=== PATIENT | female | born 1980 | race Caucasian/White ===

== ENCOUNTER 2017-01-09 11:16 | Emergency (ER) | payer OTHER ==
[2017-01-09 11:34] VITALS: BP 122/75
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
== END 2017-01-09 11:39 | disposition home or self-care (01) ==
LOC: ED 11:16
DX: J01.40 Acute pansinusitis, unspecified (principal)
CPT/HCPCS: 99283

== ENCOUNTER 2017-02-01 20:48 | Emergency (ER) | payer OTHER ==
--- NOTE | 2017-02-01 21:02 | ED Physician Documentation ---
Nausea/Vomiting/Diarrhea - HISTORIAN Historian: patient - HPI Chief Complaint: Nausea,Vomiting,Diarrhea Onset: days ago (yesterday) Timing: sudden onset Severity: moderate Further Comments: yes (Started yesterday with fever, chills, nausea, vomiting, ( none today), diarrhea (4 times). NO blood noted. mouth feels dry, no orthostatic symptoms noted) - Associated Symptoms Vomiting: mild Diarrhea: mucous, watery Abdominal Pain: cramping - ROS CONST: none - PAST HX Past History: none Surgeries/Procedures: appendectomy Allergies/Adverse Reactions: Allergies Allergy/AdvReac Type Severity Reaction Status Date / Time cephalexin monohydrate Allergy Severe Generalized Verified 02/01/17 21:07 [From Keflex] Swelling hydrogen peroxide Allergy Severe Generalized Verified 02/01/17 21:07 [Hydrogen Peroxide] Swelling Penicillins Allergy Severe Generalized Verified 02/01/17 21:07 Swelling - SOCIAL HX Smoking History: greater than 1 pack/day Alcohol Use: none Drug Use: none - FAMILY HX Family History: none - VITAL SIGNS Vital Signs: Vital Signs Temp Pulse Resp BP Pulse Ox 98.0 F 88 16 101/67 97 02/01/17 20:49 02/01/17 20:49 02/01/17 20:49 02/01/17 20:49 02/01/17 20:49 - REVIEWED ASSESSMENTS Nursing Assessment Reviewed: Yes Vitals Reviewed: Yes ED Results Lab/Radiology - Lab Results Lab Results: Lab Results 02/01/17 02/01/17 21:23 21:23 WBC 8.70 K/ul K/ul (4.00-12.00) RBC 4.64 M/ul M/ul (3.90-5.20) Hgb 14.7 g/dL g/dL (12.0-16.0) Hct 41.9 % % (34.5-46.5) MCV 90.2 fl fl (80.0-100.0) MCH 31.7 pg pg (28.0-34.0) MCHC 35.2 g/dL g/dL (30.0-36.0) RDW 12.2 % % (11.3-14.3) Plt Count 325 K/mm3 K/mm3 (130-400) Neut % (Auto) 55.6 % % (39.0-79.0) Lymph % (Auto) 25.8 % % (16.0-50.0) [place] % (Auto) 6.0 % % (0.0-11.0) Eos % (Auto) 8.9 % H % (0.0-6.8) Baso % (Auto) 0.9 (0.0-1.5) Neut # (Auto) 4.8 # k/uL # k/uL (1.4-7.7) Lymph # (Auto) 2.2 # k/uL # k/uL (0.6-4.0) [place] # (Auto) 0.5 # k/uL # k/uL (0.0-0.9) Eos # (Auto) 0.8 # k/uL H # k/uL (0.0-0.6) Baso # (Auto) 0.1 # k/uL # k/uL (0.0-0.5) Reactive Lymphs % 2.8 % % (0.0-5.0) Reactive Lymphs # 0.2 # k/uL # k/uL (0.0-0.8) Sodium 139 mmol/L mmol/L (136-145) Potassium 3.2 mmol/L L mmol/L (3.5-5.0) Chloride 103 mmol/L mmol/L (98-110) Carbon Dioxide 29 mmol/L mmol/L (20-32) BUN < 5 mg/dL L mg/dL (10-26) Creatinine 0.7 mg/dL mg/dL (0.4-1.5) Estimated Creat Clear 137 Est GFR ( Amer) > 60 (60 - ) Est GFR (Non-Af Amer) > 60 (60 - ) Glucose 84 mg/dL mg/dL (70-99) Calcium 9.6 mg/dL mg/dL (8.5-10.5) Total Bilirubin 0.4 mg/dL mg/dL (0.2-1.2) AST 12 U/L U/L (0-41) ALT 9 U/L U/L (0-45) Alkaline Phosphatase 59 U/L U/L (46-116) Total Protein 6.9 g/dL g/dL (6.0-8.5) Albumin 4.4 g/dL g/dL (3.0-5.5) - Orders Orders: ED Orders Category Date Time Status CBC/PLATELET/DIFF Routine Lab 02/01/17 21:23 Completed CMP Routine Lab 02/01/17 21:23 Completed 0.9 % Sodium Chloride [Normal Saline] 1,000 ml Med 02/01/17 21:30 Ordered IV .Q1H Ondansetron HCl/Pf [Zofran 4 mg/2 ml] Med 02/01/17 21:08 Discontinued 4 mg IVP NOW ONE Nausea Physical Exam - EXAM General Appearance: alert, mild distress EENT: no signs of dehydration Neck: normal inspection, thyroid normal, supple Respiratory: no resp distress, chest non-tender, breath sounds normal. No: wheezes, rales, rhonchi CVS: reg rate & rhythm, heart sounds normal, equal pulses, no murmur Abdomen: non-tender, no organomegaly Back: No: vertebral point-tendernes, CVA tenderness Skin: warm/dry, normal color Extremities: non-tender Neuro/Psych: oriented X3, mood/affect nml Discharge Clincal Impression: Viral gastroenteritis Referrals: Chata Leal MD [Primary Care Provider] - 2 Days Additional Instructions: Clear liquids for the next 12-24 hours. Push fluids. Take Zofran if needed for nausea. If you cintinue to have problems to follow-up with your primary care provider. Condition: Stable Disposition: 01 HOME, SELF-CARE Decision to Admit: NO Date of Decison to Admit: 02/01/17 Decision Time: 22:13
[2017-02-01] MEDS ORDERED: 0.9 % SODIUM CHLORIDE 1,000 ML IV ONE (21:20)
[2017-02-01] MEDS: 0.9 % SODIUM CHLORIDE 1,000 ML IV SCH (21:20)
[2017-02-01] MEDS: ONDANSETRON HCL/PF 4 MG/ 2ML VIAL IVP ONE (21:22)
[2017-02-01 21:29] LABS: BASOPHILS % 0.9 (0.0-1.5); EOSINOPHILS % 8.9 % (0.0-6.8); MEAN CORPUSCULAR HEMOGLOBIN 31.7 pg (28.0-34.0); MEAN CORPUSCULAR VOLUME 90.2 fl (80.0-100.0); NEUTROPHILS # 4.8 # k/uL (1.4-7.7)
[2017-02-01 21:43] LABS: eGFR (African) > 60; eGFR (Non-African) > 60
[2017-02-01 22:32] VITALS: BP 115/62
== END 2017-02-01 22:25 | disposition home or self-care (01) ==
LOC: ED 20:48
DX: A08.4 Viral intestinal infection, unspecified (principal)
CPT/HCPCS: 80053; 85025; J2405; J7030; 96361; 96374; 99283; S1016

== ENCOUNTER 2017-08-19 16:22 | Emergency (ER) | payer OTHER ==
--- NOTE | 2017-08-19 16:47 | ED Physician Documentation ---
Female Urogenital Problems - HISTORIAN Historian: patient - HPI Chief Complaint: Female Urogenital Problems Additional Information: kidney pain and dysuria x 2 days, with sore throat and ear ache, feels bad. sick kids. Onset: days ago Severity: mild Further Comments: no - Associated Symptoms Urinary Symptoms: discomfort w/ urination, burning w/ urination - ROS CONST: none GI/: denies: nausea, vomiting CVS/RESP: none EYES/ENT: sore throat NEURO/PSYCH: none MS/SKIN/LYMPH: none - PAST HX Past History: none Other History: none Surgeries/Procedures: appendectomy Allergies/Adverse Reactions: Allergies Allergy/AdvReac Type Severity Reaction Status Date / Time cephalexin monohydrate Allergy Severe Generalized Verified 02/01/17 21:07 [From Keflex] Swelling hydrogen peroxide Allergy Severe Generalized Verified 02/01/17 21:07 [Hydrogen Peroxide] Swelling Penicillins Allergy Severe Generalized Verified 02/01/17 21:07 Swelling - SOCIAL HX Smoking History: cigarettes, greater than 1 pack/day Alcohol Use: none Drug Use: none - FAMILY HX Family History: none - VITAL SIGNS Vital Signs: Vital Signs Temp Pulse Resp BP Pulse Ox 115/62 02/01/17 22:25 ED Results Lab/Radiology - Lab Results Lab Results: UA (+) nitrites 3+ leukocytes RS (-) - Orders Orders: ED Orders Category Date Time Status Rapid Strep [GRP A STREP SCREEN] Stat Lab 08/19/17 Ordered UA W MICRO [UA W/MICRO IF INDICATED] Routine Lab 08/19/17 16:45 Ordered Female Urogenital Problems - EXAM General Appearance: no acute distress, alert EENT: eye inspection normal, TM's nml, pharyngeal erythema. No: no signs of dehydration, hearing deficit Neck: nml inspection Respiratory: no resp. distress, breath sounds nml CVS: reg rate & rhythm, heart sounds normal, equal pulses Abdomen: soft, non-tender Back: non-tender Skin: color nml, no rash, warm,dry Extremities: non-tender Neuro: oriented X3 Discharge Clincal Impression: UTI (urinary tract infection) Qualifiers: Urinary tract infection type: acute cystitis Hematuria presence: without hematuria Qualified Code(s): N30.00 - Acute cystitis without hematuria Referrals: Chata Leal MD [Primary Care Provider] - 2 Days Condition: Good Disposition: 01 HOME, SELF-CARE Decision to Admit: NO Date of Decison to Admit: 08/19/17 Decision Time: 16:50
[2017-08-19 16:56] VITALS: BP 110/68
[2017-08-19 17:07] LABS: APPEARANCE,URINE CLOUDY (CLEAR); COLOR,URINE YELLOW (YELLOW); OCCULT BLOOD,URINE 1+ (NEGATIVE); UROBILINOGEN URINE 0.2 Eu (0.2-1.0)
== END 2017-08-19 16:55 | disposition home or self-care (01) ==
LOC: ED 16:22
DX: N30.00 Acute cystitis without hematuria (principal)
CPT/HCPCS: 81002; 87070; 87086; 87186; 87880; 99283

== ENCOUNTER 2017-08-21 19:44 | Emergency (ER) | payer OTHER ==
[2017-08-21] MEDS ORDERED: KETOROLAC TROMETHAMINE 30 MG/1ML VIAL IVP ONE (20:01)
[2017-08-21] MEDS ORDERED: ONDANSETRON HCL/PF 4 MG/ 2ML VIAL IVP ONE (20:01)
[2017-08-21] MEDS ORDERED: 0.9 % SODIUM CHLORIDE 1,000 ML IV ONE (20:01)
--- NOTE | 2017-08-21 20:09 | ED Physician Documentation ---
Abdominal Pain - HISTORIAN Historian: patient - HPI Stated Complaint: abdominal pain Chief Complaint: Abdominal Pain Onset: hours (2) Duration: constant Timing: worse Context: other (UTI recently ) Severity: moderate Quality: pain, burning, cramping, sharp, fullness (she feels her "privates are going to fall out" ) Associated Symptoms: nausea, vomiting, loss of appetite. denies: fever Exacerbated by: nothing Relieved by: nothing Further Comments: yes (She states she was seen here in ER two days ago treated for UTI. She did feel her symptoms had improved and today less than one hour before arrival she started to have left sided abdominal pain wrapping around to her back and now the pain is left and right sided with lower pelvic pain. Denies any vaginal discharge. No fever. She has had nasuea and vomiting and she feels she needs to urinate and cannot.) - ROS CONST: recent illness (UTI ) GI/: problems urinating CVS/RESP: denies: hurts to breath NEURO/PSYCH: denies: headache - SOCIAL HX Smoking History: cigarettes Alcohol Use: none Drug Use: none - FAMILY HX Family History: none - PAST HX Past History: none Ischemic Bowel Risk Factors: none Other History: none Surgeries/Procedures: none Immunizations: UTD Home Medications: Ambulatory Orders Medication Instructions Recorded Nitrofurantoin Monohyd/M-Cryst 100 mg PO BID 08/21/17 [Macrobid] Phenazopyridine HCl [Pyridium] 100 mg PO BID 08/21/17 Allergies/Adverse Reactions: Allergies Allergy/AdvReac Type Severity Reaction Status Date / Time cephalexin monohydrate Allergy Severe Generalized Verified 08/21/17 20:42 [From Keflex] Swelling hydrogen peroxide Allergy Severe Generalized Verified 08/21/17 20:42 [Hydrogen Peroxide] Swelling Penicillins Allergy Severe Generalized Verified 08/21/17 20:42 Swelling - VITAL SIGNS Vital Signs: Vital Signs Temp Pulse Resp BP Pulse Ox 98.0 F 115 H 16 146/88 97 08/21/17 19:50 08/21/17 19:50 08/21/17 19:50 08/21/17 19:50 08/21/17 19:50 - REVIEWED ASSESSMENTS Nursing Assessment Reviewed: Yes Vitals Reviewed: Yes ED Results Lab/Radiology - Lab Results Lab Results: Lab Results 08/21/17 08/21/17 20:05 20:05 WBC 11.80 K/ul K/ul (4.00-12.00) RBC 5.15 M/ul M/ul (3.90-5.20) Hgb 15.7 g/dL g/dL (12.0-16.0) Hct 47.1 % H % (34.5-46.5) MCV 91.5 fl fl (80.0-100.0) MCH 30.6 pg pg (28.0-34.0) MCHC 33.4 g/dL g/dL (30.0-36.0) RDW 12.2 % % (11.3-14.3) Plt Count 452 K/mm3 H K/mm3 (130-400) Neut % (Auto) 57.1 % % (39.0-79.0) Lymph % (Auto) 30.4 % % (16.0-50.0) [place] % (Auto) 4.9 % % (0.0-11.0) Eos % (Auto) 3.2 % % (0.0-6.8) Baso % (Auto) 1.3 (0.0-1.5) Neut # (Auto) 6.7 # k/uL # k/uL (1.4-7.7) Lymph # (Auto) 3.6 # k/uL # k/uL (0.6-4.0) [place] # (Auto) 0.6 # k/uL # k/uL (0.0-0.9) Eos # (Auto) 0.4 # k/uL # k/uL (0.0-0.6) Baso # (Auto) 0.2 # k/uL # k/uL (0.0-0.5) Reactive Lymphs % 3.1 % % (0.0-5.0) Reactive Lymphs # 0.4 # k/uL # k/uL (0.0-0.8) Sodium 139 mmol/L mmol/L (136-145) Potassium 3.8 mmol/L mmol/L (3.5-5.1) Chloride 96 mmol/L L mmol/L (98-107) Carbon Dioxide 26 mmol/L mmol/L (22-30) BUN 9 mg/dL mg/dL (7-17) Creatinine 0.80 mg/dL mg/dL (0.52-1.04) Estimated Creat Clear 124 Est GFR ( Amer) > 60 (60 - ) Est GFR (Non-Af Amer) > 60 (60 - ) Glucose 83 mg/dL mg/dL (74-106) Calcium 10.5 mg/dL H mg/dL (8.4-10.2) Total Bilirubin 0.7 mg/dL mg/dL (0.2-1.3) AST 15 U/L U/L (15-46) ALT 16 U/L U/L (13-69) Alkaline Phosphatase 64 U/L U/L (38-126) Total Protein 8.2 g/dL g/dL (6.3-8.2) Albumin 4.7 g/dL g/dL (3.5-5.0) - Radiology Radiology Impressions: Computed tomography of the abdomen and pelvis without contrast History: LT FLANK PAIN AND LOWER ABDOMINAL PAIN X 1 DAY, HX OF KIDNEY INFECTION Findings: Transverse abdomen and pelvis sections are obtained without contrast revealing gallbladder contraction and appendectomy. The kidneys, liver, lung bases, spleen, pancreas, adrenals, great vessels, and mesenteric structures are normal. There is no obstructive uropathy or urolithiasis. Bowel loops exhibit normal caliber and wall thickness. Pelvic sections reveal normal sized uterus and ovaries. Pelvic bowel loops and urinary bladder are unremarkable. There is no ureteral or bladder stone. Impression: 1. Nonvisualization of the appendix. Otherwise normal abdomen. 2. Normal pelvis. Electronically signed on Aug 21, 2017 8:53:01 PM [employer] by: Kendrick Woodruff - Orders Orders: ED Orders Category Date Time Status Place IV Lock 1T Care 08/21/17 20:[address] ABD & PELVIS W/O CON Stat Exams 08/21/17 Taken CBC/PLATELET/DIFF Stat Lab 08/21/17 20:05 Completed CMP Stat Lab 08/21/17 20:05 Completed UA W/MICRO IF INDICATED Routine Lab 08/21/17 20:02 Ordered URINE HCG Stat Lab 08/21/17 20:15 Ordered 0.9 % Sodium Chloride [Normal Saline] 1,000 ml Med 08/21/17 20:01 Discontinued IV Q1H Famotidine/Pf [Pepcid] Med 08/21/17 21:06 Discontinued 20 mg IVP NOW ONE Ketorolac Tromethamine [Toradol] Med 08/21/17 20:01 Discontinued 30 mg IVP NOW ONE Ondansetron HCl/Pf [Zofran 4 mg/2 ml] Med 08/21/17 20:01 Discontinued 4 mg IVP NOW ONE Promethazine HCl [Phenergan] Med 08/21/17 20:28 Discontinued 25 mg .ROUTE .STK-MED ONE Promethazine HCl [Phenergan] 25 mg Med 08/21/17 20:17 Discontinued 0.9 % Sodium Chloride [Sodium Chloride] 50 ml IV NOW fentaNYL CITRATE/PF [Duragesic] Med 08/21/17 21:06 Discontinued 50 mcg IVP NOW ONE Abdominal Pain Physical Exam - Physical Exam General Appearance: moderate distress (crying and vomiting ) EENT: eye inspection normal NECK: normal inspection RESPIRATORY: no resp distress, chest non-tender, breath sounds normal CVS: reg rate & rhythm, heart sounds normal, equal pulses, no murmur ABDOMEN: soft, guarding, other (she is complianing of pain with palpation over entire abdomen. No CVA tenderness noted ) SKIN: warm/dry, normal color EXTREMITIES: non-tender, normal range of motion, no evidence of injury, no edema NEURO: oriented X3, CN's nml as tested, motor nml, sensation nml, mood/affect nml Vital Signs: Vital Signs Temp Pulse Resp BP Pulse Ox 98.0 F 115 H 16 146/88 97 08/21/17 19:50 08/21/17 19:50 08/21/17 19:50 08/21/17 19:50 08/21/17 19:50 Discharge Clincal Impression: Nausea & vomiting Qualifiers: Vomiting type: unspecified Vomiting Intractability: unspecified Qualified Code( s): R11.2 - Nausea with vomiting, unspecified Referrals: Chata Leal MD [Primary Care Provider] - 2 Days Comments: Clear liquids and bland diet advance as tolerated Zantac 150 mg BID Zofran 4 mg every 8 hours as needed for nausea Follow up with PCP Return to ER for any concerns Condition: Stable Disposition: 01 HOME, SELF-CARE Decision to Admit: NO Date of Decison to Admit: 08/21/17 Decision Time: 22:11
[2017-08-21 20:17] LABS: BASOPHILS % 1.3 (0.0-1.5); EOSINOPHILS % 3.2 % (0.0-6.8); MEAN CORPUSCULAR HEMOGLOBIN 30.6 pg (28.0-34.0); MEAN CORPUSCULAR VOLUME 91.5 fl (80.0-100.0); MONOCYTES % 4.9 % (0.0-11.0); NEUTROPHILS # 6.7 # k/uL (1.4-7.7)
[2017-08-21] MEDS ORDERED: PROMETHAZINE HCL 25 MG in 0.9 % SODIUM CHLORIDE 50 ML IV ONE (20:17)
[2017-08-21] MEDS ORDERED: PROMETHAZINE HCL 25 MG/ML VIAL ONE (20:28)
[2017-08-21] MEDS ORDERED: FAMOTIDINE/PF 20 MG/2 ML VIAL IVP ONE (21:06)
[2017-08-21] MEDS ORDERED: fentaNYL CITRATE/PF 100 MCG/ 2ML AMP IVP ONE (21:06)
[2017-08-21 21:32] LABS: eGFR (African) > 60; eGFR (Non-African) > 60
[2017-08-21 23:06] VITALS: BP 132/76
--- NOTE | 2017-08-21 23:14 | Diagnostic Imaging Report ---
CANDIDO LOPEZ [facility] [id number] [facility] [address] [place], [place]. [address] Report Submission Date: Aug 21, 2017 8:53:01 PM [facility] Patient Study Name: FELIPE PRUITT Date: Aug 21, 2017 8:34:37 PM [facility] Modality Type: CT\SR Gender: F Description: CT ABD & PELVIS W/O CO : 82 Institution: [facility] Physician: CANDIDO LOPEZ Computed tomography of the abdomen and pelvis without contrast History: LT FLANK PAIN AND LOWER ABDOMINAL PAIN X 1 DAY, HX OF KIDNEY INFECTION Findings: Transverse abdomen and pelvis sections are obtained without contrast revealing gallbladder contraction and appendectomy. The kidneys, liver, lung bases, spleen, pancreas, adrenals, great vessels, and mesenteric structures are normal. There is no obstructive uropathy or urolithiasis. Bowel loops exhibit normal caliber and wall thickness. Pelvic sections reveal normal sized uterus and ovaries. Pelvic bowel loops and urinary bladder are unremarkable. There is no ureteral or bladder stone. Impression: 1. Nonvisualization of the appendix. Otherwise normal abdomen. 2. Normal pelvis. Electronically signed on Aug 21, 2017 8:53:01 PM [facility] by: Kendrick ALEXIS
[2017-08-22 06:11] LABS: APPEARANCE,URINE CLEAR (CLEAR); COLOR,URINE YELLOW (YELLOW); OCCULT BLOOD,URINE NEGATIVE (NEGATIVE); PH URINE 6.5 (5.0 - 8.0); URINE HCG NEGATIVE (NEGATIVE); UROBILINOGEN URINE 0.2 Eu (0.2-1.0)
== END 2017-08-21 22:05 | disposition home or self-care (01) ==
LOC: ED 19:44
DX: R11.2 Nausea with vomiting, unspecified (principal); R10.9 Unspecified abdominal pain
CPT/HCPCS: 74176; 80053; 81002; 81025; 85025; J1885; J2405; J2550; J3010; J7030; 96365; 96375; 99283; S0028; S1016